=== PATIENT | female | born 1995 | race Caucasian/White ===

== ENCOUNTER 2023-08-20 19:07 | Emergency (ER) | payer OTHER, SELFPAY ==
[2023-08-20 19:12] VITALS: BP 149/85; PULSE 66; RESP 18; TEMP 36.7; O2SAT 100; BMI 23.8
[2023-08-20 19:15] VITALS: PULSE 62
--- NOTE | 2023-08-20 19:21 | ECG_ITS ---
The [facility] Test Date: 2023-08-20 Pat Name: JHON PECK Department: Room: - Gender: Female Glass Bender: : 1995 Requested By: [id number] Order Number: [id number] Reading MD: PURA DAILEY Measurements Intervals Ord Rate: 62 P: 61 WV: 164 QRS: 88 QRSD: 86 T: 37 QT: 400 QTc: 405 Interpretive Statements 1100 Sinus rhythm [address] depression 9130 borderline ECG No previous ECG available for comparison Electronically Signed On 08-22-2023 10:40:43 EST by PURA DAILEY
--- NOTE | 2023-08-20 19:21 | XR_ITS ---
The [address] [address] Patient Name: JHON PECK MRN: [id number] date: 1995 Sex: F Assigned Patient Location: ER Current Patient Location: ER Accession/Order Number: [id number] Exam Date: 08/20/2023 19:30 Report Date: 08/20/2023 19:55 At the request of: KARLA GATES Procedure: XR chest 1V EXAM: XR chest 1V at 1927 hours HISTORY: chest pain COMPARISON: None. TECHNIQUE: AP upright portable chest x-ray FINDINGS: The heart is not enlarged and the vasculature is not distended. No acute infiltrate, effusion or pneumothorax is identified. The osseous structures are grossly intact. XR/XR chest 1V IMPRESSION: No acute infiltrate or evidence of cardiac decompensation. Direct comparison with a previous study would be helpful in determining the chronicity of these findings. Electronically authenticated by: MAGGIE OCAMPO Date: 08/20/2023 19:55
[2023-08-20 19:35] LABS: Basophils Absolute Auto 0.2 10^3/uL (0.0-0.1); Basophils Percent Auto 1.5 % (0.2-2.0); Eosinophils Absolute Auto 0.2 10^3/uL (0.0-0.7); Eosinophils Percent Auto 2.1 % (0.9-7.0); Hematocrit 43.1 % (36.0-48.0); Hemoglobin 13.6 g/dL (12.0-16.0); Immature Granulocytes Abs Auto 0.03 10^3/uL (0.00-0.03); Immature Granulocytes Pct Auto 0.3 % (0.0-0.5); Lymphocytes Absolute Auto 3.4 10^3/uL (1.2-3.8); Lymphocytes Percent Auto 32.6 % (20.5-60.0); Mean Corpuscular HGB Conc 31.6 g/dL (29.9-35.2); Mean Corpuscular Volume 85.7 fL (81.0-99.0); Mean Platelet Volume 10.5 fL (9.5-13.5); Monocytes Absolute Auto 0.7 10^3/uL (0.3-0.8); Monocytes Percent Auto 6.2 % (1.7-12.0); Neutrophils Absolute Auto 6.1 10^3/uL (1.4-6.5); Neutrophils Percent Auto 57.3 % (43.0-75.0); Platelet Count 222 10^3/uL (150-450); Red Blood Count 5.03 10^6/uL (4.20-5.40); Red Cell Distribution Width 13.3 % (11.0-15.0); White Blood Count 10.6 10^3/uL (4.0-11.0)
[2023-08-20 19:38] LABS: HCG Qualitative Urine* NEGATIVE (NEGATIVE)
--- NOTE | 2023-08-20 19:50 | ED.CHESTPAI1 ---
HPI - Chest Pain General Chief Complaint: Chest Pain Stated Complaint: Chest pain Dizzness Time Seen by Provider: 08/20/23 19:14 Source: patient Mode of arrival: walk-in History of Present Illness HPI narrative: 19-year-old female to the emergency department chief complaint of episode of chest discomfort. Patient reports she was driving to work approximately three hours prior to arrival when she began to experience some substernal chest pressure. She denies any shortness of breath. She denies any leg swelling. No history of deep vein thrombosis or PE. She reports that she had an episode of atrial fibrillation a few years ago and has been prescribed labetalol for this but doesn't take it. She reports that she took the labetalol at the onset of symptoms and they resolved. She reports that this has happened in the past. She went to work and they told her she should be evaluated before she can work. Currently asymptomatic. Related Data Home Medications Medication Instructions Recorded Confirmed No Known Home Medications 08/20/23 08/20/23 Allergies Allergy/AdvReac Type Severity Reaction Status Date / Time No Known Drug Allergies Allergy Verified 08/20/23 19:16 Review of Systems ROS Status of ROS 10 or more systems reviewed and unremarkable except as noted in history and below PFSH PFS Social History Smoking status: Current every day smoker Exam Narrative Exam Narrative: VITALS: I have reviewed the triage vital signs. GENERAL: Well developed, well appearing adult in no acute distress. NEURO: Alert and oriented. Moves all extremities. Face is symmetric and expressive. EYES: PERRL. No scleral icterus or conjunctival injection. No discharge. HENT: Normocephalic, atraumatic. Hearing is grossly intact. Nares grossly patent and without discharge. Mucous membranes moist. NECK: No JVD. Patient moves neck without restriction. CARDIO: Rhythm regular. Normal rate. No murmur, rub, or gallop. Pulses equal bilaterally in the upper and lower extremity. No lower extremity edema. PULM: Lungs clear to auscultation in all funk. No wheezes, rales, or rhonchi. No conversational dyspnea. No splinting, stridor, or accessory muscle use. GI/: Abdomen is soft and non-tender. Normoactive bowel sounds. EXTREMITIES: Symmetric muscle bulk. No joint swelling. No clubbing, cyanosis, or deformity. SKIN: Warm and dry. Normal turgor. No rash or lesions appreciated. PSYCH: Mood, affect, and interaction is appropriate to the setting. Constitutional Vital Signs, click to edit/add: Last Vital Signs Temp 98.0 F 08/20/23 19:12 Pulse 55 L 08/20/23 19:57 Resp 20 08/20/23 19:57 BP 149/85 H 08/20/23 19:57 Pulse Ox 98 08/20/23 19:57 O2 Del Method Room Air 08/20/23 19:57 Course Vital Signs Vital signs: Vital Signs Temperature 98.0 F 08/20/23 19:12 Pulse Rate 66 08/20/23 19:12 Respiratory Rate 18 08/20/23 19:12 Blood Pressure 149/85 H 08/20/23 19:12 Pulse Oximetry 100 08/20/23 19:12 Oxygen Delivery Method Room Air 08/20/23 19:12 Temperature 98.0 F 08/20/23 19:12 Pulse Rate 55 L 08/20/23 19:57 Respiratory Rate 20 08/20/23 19:57 Blood Pressure 149/85 H 08/20/23 19:57 Pulse Oximetry 98 08/20/23 19:57 Oxygen Delivery Method Room Air 08/20/23 19:57 MDM - Chest Pain MDM Narrative Medical decision making narrative: A 27-year-old female to emergency Department with chief complaint of episode of chest pain is now resolved. Vital stable, the patient is afebrile. Cardiac workup is initiated. PERC negative effectively ruling out VT in this low-risk patient. CBC and chemistry are unremarkable. Her troponin is very low. Heart scores low risk. She is appropriate for outpatient follow-up with cardiology. She is not currently followed cardiology although is taking labetalol intermittently for atrial fibrillation that she reports. Unclear whether this atrial fibrillation was diagnosed or she truly has atrial fibrillation. She is given cardiovascular referral at [facility] as this is closer to her home by her request. Return precautions were discussed. All questions were answered. The patient was discharged home. Medical Records Data Attestation: I reviewed the patient's medical records. Lab Data Attestation: I reviewed the patient's lab results. Labs: Lab Results 08/20/23 Range/Units 19:15 WBC 10.6 (4.0-11.0) 10^3/uL RBC 5.03 (4.20-5.40) 10^6/uL Hgb 13.6 (12.0-16.0) g/dL Hct 43.1 (36.0-48.0) % MCV 85.7 (81.0-99.0) fL MCH 27.0 (26.7-34.0) pg MCHC 31.6 (29.9-35.2) g/dL RDW 13.3 (11.0-15.0) % Plt Count 222 (150-450) 10^3/uL MPV 10.5 (9.5-13.5) fL Neut % (Auto) 57.3 (43.0-75.0) % Lymph % (Auto) 32.6 (20.5-60.0) % [place] % (Auto) 6.2 (1.7-12.0) % Eos % (Auto) 2.1 (0.9-7.0) % Baso % (Auto) 1.5 (0.2-2.0) % Neut # (Auto) 6.1 (1.4-6.5) 10^3/uL Lymph # (Auto) 3.4 (1.2-3.8) 10^3/uL [place] # (Auto) 0.7 (0.3-0.8) 10^3/uL Eos # (Auto) 0.2 (0.0-0.7) 10^3/uL Baso # (Auto) 0.2 H (0.0-0.1) 10^3/uL Abs Immat Gran (auto) 0.03 (0.00-0.03) 10^3/uL Imm/Tot Granulo (auto) 0.3 (0.0-0.5) % Sodium 137 (136-145) mmol/L Potassium 3.5 (3.5-5.1) mmol/L Chloride 105 (98-107) mmol/L Carbon Dioxide 27.7 (21.0-32.0) mmol/L Anion Gap 7.8 BUN 13.0 (7.0-18.0) mg/dL Creatinine 0.77 (0.55-1.02) mg/dL Est GFR ( Amer) >60 (>=60) Est GFR (Non-Af Amer) >60 (>=60) BUN/Creatinine Ratio 16.9 Glucose 91 (74-106) mg/dL Calcium 9.5 (8.5-10.1) mg/dL Total Bilirubin 0.2 (0.2-1.0) mg/dL AST 11 L (15-37) U/L ALT 17 (14-59) U/L Alkaline Phosphatase 37 L (46-116) U/L Troponin I High Sens <4.0 L (4.0-51.3) pg/mL Total Protein 7.6 (6.4-8.2) g/dL Albumin 4.0 (3.4-5.0) g/dL Globulin 3.6 g/dL Albumin/Globulin Ratio 1.1 Urine HCG, Qual Negative (NEGATIVE) ECG Data Attestation: I personally reviewed and interpreted this ECG as follows: (Normal sinus rhythm at a rate of 62. QTC 405. No acute ischemic changes.) Heart Score History: Slightly/Non-Suspicious ECG: Normal Age: <45 years Risk Factors: 1 or 2 Risk Factors Troponin: <Normal Limit Total Heart Score Recommendations & Risks:: 1 Discharge Plan Discharge Chief Complaint: Chest Pain Clinical Impression: Chest pain Patient Disposition: Home, Self-Care Time of Disposition Decision: 20:39 Condition: Good Mode of Transportation: Private Vehicle Prescriptions / Home Meds: No Action No Known Home Medications Print Language: Syriac Instructions: Chest Pain (ED) Stand Alone Forms: Portal Instructions Referrals: Physician,Non-Staff, MD [Primary Care Provider] - 1 week (Dr. Hoda Cadet/[facility] [address] [place] [id number] Main: [phone])
[2023-08-20 19:55] LABS: Alanine Aminotransferase 17 U/L (14-59); Albumin Globulin Ratio 1.1; Alkaline Phosphatase 37 U/L (46-116); Anion Gap 7.8; Aspartate Amino Transferase 11 U/L (15-37); BUN Creatinine Ratio 16.9; Bilirubin Total 0.2 mg/dL (0.2-1.0); Calcium 9.5 mg/dL (8.5-10.1); Carbon Dioxide 27.7 mmol/L (21.0-32.0); Chloride 105 mmol/L (98-107); Estimated GFR (African America >60 (>=60); Estimated GFR (Non-African Ame >60 (>=60); Globulin 3.6 g/dL; Glucose 91 mg/dL (74-106); Potassium 3.5 mmol/L (3.5-5.1); Sodium 137 mmol/L (136-145); Total Protein 7.6 g/dL (6.4-8.2); Troponin I High Sensitivity <4.0 pg/mL (4.0-51.3)
[2023-08-20 19:57] VITALS: BP 149/85; PULSE 55; RESP 20; O2SAT 98
[2023-08-20] MEDS: 0.9 % SODIUM CHLORIDE 1,000 ML 999 ML IV (20:09)
== END 2023-08-20 21:04 | disposition home or self-care (01) ==
PROVIDERS: Emergency Provider Student in an Organized Health Care Education/Training Program
DX: R07.9 Chest pain, unspecified (principal); F17.210 Nicotine dependence, cigarettes, uncomplicated
CPT/HCPCS: 36415; 71045; 80053; 84484; 84703; 85025; 93005; 99285